=== PATIENT | female | born 1990 | race Caucasian/White ===

== ENCOUNTER 2017-04-12 17:00 | Emergency (ER) | payer MEDICAID ==
[2017-04-12] MEDS ORDERED: Albuterol Nebulizer 2.5mg/3mL HHN STA (17:55)
--- NOTE | 2017-04-12 18:01 | ED Physician Chart ---
Chief Complaint/HPI - Patient Information Date Seen:: 04/12/17 Time Seen:: 17:30 Chief Complaint:: chest pain History of Present Illness:: 4 days ago the patient developed sharp superior chest pain radiating to left side of her face. Pain is increased by deep breathing and by cough. Patient's had a cough for 5 days productive of green and slightly blood tinged sputum. She felt warm her temperature wasn't taken. Allergies:: Allergies Allergy/AdvReac Type Severity Reaction Status Date / Time No Known Allergies Allergy Verified 04/12/17 17:13 Vitals:: Vital Signs - 8 hr 04/12/17 17:08 Temp 97.9 F HR 79 RR 16 O2 Sat % 99 Historian:: Patient Review:: Nurse's Note Reviewed Review of Systems - Review of Systems General/Constitutional: Fever Skin: No skin lesions Head: No headache Eyes: No loss of vision ENT: No earache, Other (left cheek pain) Neck: No neck pain Cardio Vascular: Chest pain Pulmonary: Cough, Sputum GI: No nausea, No vomiting G/U: No dysuria, No frequency, No hematuria Musculoskeletal: No bone or joint pain, No back pain, No muscle pain Endocrine: No polyuria, No polydipsia Psychiatric: No prior psych history Allergic/Immuno: No urticaria Neurological: No syncope, No focal symptoms Past Medical History - Past Medical History Past Medical History: Other (depression and childhood asthma) Family History: Diabetes Melitus, HTN, Other (gastritis; migraine headaches; colon polyps) Social History: Non Smoker, No Alcohol Surgical History: None Psychiatricy History: Depression Medication: Reviewed Family Medical History - Family Member Mother History Unknown: Yes Physical Exam - Physical Examination General/Constitutional: Well-developed, well-nourished, Alert, No distress Head: Atraumatic Eyes: Lids, conjuctiva normal, PERRL Skin: Nl inspection, No rash, No skin lesions, No ecchymosis, Well hydrated, No lymphadenopathy ENMT: External ears, nose nl, TM canals nl, Nasal exam nl, Lips, teeth, gums nl , Oropharynx nl Neck: No nuchal rigidity Respiratory: Nl effort/Exclusion Other Respiratory comments:: Prolonged expiration at the lung apices. Otherwise chest is clear. Cardio Vascular: RRR, No murmur, gallop, rubs, NL S1 S2 GI: No tenderness/rebounding/guarding, No organomegaly, No hernia, Normal BS's, Nondistended : No CVA tenderness Extremities: Normal digits & nails Neuro/Psych: No focal deficits Misc: No paraspinal tenderness Assessment - Assessment General Assessment: After the breathing treatment the patient felt better. I explained to patient that antibiotics would not be helpful for her current illness. She complained of sore throat especially but the throat appears normal so patient has viral pharyngitis for which I suggested Tylenol. ED Septic Shock - . Is Septic Shock (SBP<90, OR Lactate>4 mmol\L) present?: No - <6hrs of presentation: Vital Signs: Vital Signs - 8 hr 04/12/17 17:08 Temp 97.9 F HR 79 RR 16 O2 Sat % 99 Reassessment (Disposition) - Reassessment Reassessment Condition:: Improved - Diagnosis Diagnosis:: Acute viral syndrome; reactive airway disease - Aftercare/Follow up Instructions Aftercare/Follow-Up Instructions:: Refer to Discharge Instructions Medication Prescribed:: Prescription for albuterol metered-dose inhaler to take 2 puffs every 4 hours as necessary. - Patient Disposition Discharge/Transfer:: Home Condition at Disposition:: Stable, Improved ED Discharge Plan - Patient Disposition Instructions: Viral Infections, [id number] Additional Instructions: Pls follow up with your primary doctor tomorrow.
[2017-04-12] MEDS ORDERED: Albuterol Nebulizer 2.5mg/3mL HHN ONE (18:19)
== END 2017-04-12 18:50 | disposition home or self-care (01) ==
LOC: ER 17:00
DX: J45.909 Unspecified asthma, uncomplicated (principal); B34.9 Viral infection, unspecified
CPT/HCPCS: 94640; J7613; Z7502